=== PATIENT | female | born 1955 | race Caucasian/White ===

== ENCOUNTER 2016-12-24 15:10 | Emergency (ER) | payer OTHER ==
[~2016-12-24 15:10] MED LIST: ASPIRIN ADULT L81 M5 PO; ENALAPRIL MALEA10 MG PO; MOBIC15 MG PO; PRI20 PO; ZOCOR10 MG PO
[2016-12-24 15:26] VITALS: BP 120/84
== END 2016-12-24 17:30 | disposition home or self-care (01) ==
LOC: ED 15:10
DX: S82.62XA Displaced fracture of lateral malleolus of left fibula, initial encounter for closed fracture (principal); S90.32XA Contusion of left foot, initial encounter; Z88.0 Allergy status to penicillin; Z90.49 Acquired absence of other specified parts of digestive tract; W18.30XA Fall on same level, unspecified, initial encounter; Y93.89 Activity, other specified; Y92.89 Other specified places as the place of occurrence of the external cause; Y99.8 Other external cause status
CPT/HCPCS: J1885

== ENCOUNTER 2018-12-14 13:12 | Emergency (ER) | payer OTHER ==
[~2018-12-14] VITALS: Ht 157.5 cm; Wt 87.1 kg
[2018-12-14 13:19] VITALS: Ht 157.5 cm; Wt 87.1 kg
[2018-12-14 14:53] LABS: CHLORIDE SERUM 107 mmol/L (98-107); CREATININE SERUM 0.6 mg/dL (0.6-1.0); GFR1 > 60 mL/min; GLUCOSE SERUM 111 mg/dL (74-106); POTASSIUM SERUM 3.9 mmol/L (3.5-5.1); SODIUM SERUM 142 mmol/L (136-145)
[2018-12-14 14:54] LABS: BASOPHIL % 0.5 % (0-2); PLATELET COUNT 224 x10^3mcL (130-400); RED CELL DISTRIBUTION WIDTH 13.1 % (11.5-14.5)
[2018-12-14 14:58] LABS: ALBUMIN 3.5 g/dL (3.4-5.0); ALKALINE PHOSPHATASE 87 U/L (46-116); ALT/SGPT 17 U/L (14-59); AST/SGOT 12 U/L (15-37); BILIRUBIN TOTAL 0.5 mg/dL (0.20-1.00); TOTAL PROTEIN, SERUM 7.3 g/dL (6.4-8.2)
[2018-12-14 15:33] VITALS: BP 137/66
== END 2018-12-14 15:33 | disposition home or self-care (01) ==
LOC: ED 13:12
PROVIDERS: Emergency Medicine
DX: R42 Dizziness and giddiness (principal); R51 Headache; I10 Essential (primary) hypertension; Z88.0 Allergy status to penicillin
CPT/HCPCS: 36415; J8597

== ENCOUNTER 2020-05-13 13:34 | Emergency (ER) | payer OTHER, SELFPAY ==
[~2020-05-13] VITALS: Ht 157.5 cm; Wt 89.8 kg
[2020-05-13 13:36] VITALS: Ht 157.5 cm; Wt 89.8 kg
[2020-05-13 15:04] VITALS: BP 109/72
== END 2020-05-13 15:04 | disposition home or self-care (01) ==
LOC: ED 13:34
DX: B34.9 Viral infection, unspecified (principal); I10 Essential (primary) hypertension; Z88.0 Allergy status to penicillin